=== PATIENT | female | born 1990 | race American Indian/Alaskan Native ===

== ENCOUNTER 2018-07-27 14:04 | Emergency (ER) | payer MEDICAID, OTHER ==
[2018-07-27 14:23] VITALS: RESP 18
[2018-07-27 14:37] VITALS: BMI 46.5
[2018-07-27] MEDS ORDERED: Sodium Chloride 0.9% 1,000 ML IV STA (14:37)
--- NOTE | 2018-07-27 15:29 | ED PDOC ---
Arrival/HPI - General Chief Complaint: Abdominal Pain Time Seen by Provider: 07/27/18 14:06 Historian: Patient - History of Present Illness Narrative History of Present Illness (Text): 07/27/18 15:26 27yo female with pmhx of Asthma bib EMS for complaint of epigastric pain associated with 3 episodes on nonbloody/bilious vomiting and diarrhea since this morning. States her finance who is also a patient in ED have similar symptoms. Denies fever, chills, chest pain, SOB, travel, melena, hematemesis, back pain, urinary symptoms, any other complaint,. Past Medical History - Provider Review Nursing Documentation Reviewed: Yes - Cardiac Hx Cardiac Disorders: No - Pulmonary Hx Respiratory Disorders: Yes Hx Asthma: Yes - Psychiatric Hx Substance Use: No Family/Social History - Physician Review Nursing Documentation Reviewed: Yes Family/Social History: Unknown Family HX Smoking Status: Light Smoker < 10 Cigarettes Daily Hx Alcohol Use: Yes Frequency of alcohol use: Socially Hx Substance Use: No Allergies/Home Meds Allergies/Adverse Reactions: Allergies No Known Allergies Allergy (Verified 07/27/18 14:30) Review of Systems - Physician Review All systems were reviewed & negative as marked: Yes - Review of Systems Constitutional: Normal Eyes: Normal ENT: Normal Respiratory: Normal Cardiovascular: Normal Gastrointestinal: Abdominal Pain, Diarrhea, Nausea, Vomiting. absent: Constipation, Hematochezia, Hematemesis Genitourinary Female: Normal Musculoskeletal: Normal Skin: Normal Neurological: Normal Endocrine: Normal Hemo/Lymphatic: Normal Psychiatric: Normal Physical Exam Vital Signs Reviewed: Yes Vital Signs Temp Pulse Resp BP Pulse Ox 07/27/18 14:22 98.5 F 99 H 18 108/45 L 99 Temperature: Afebrile Blood Pressure: Normal Pulse: Regular Respiratory Rate: Normal Appearance: Positive for: Well-Appearing, Non-Toxic, Comfortable Pain Distress: None Mental Status: Positive for: Alert and Oriented X 3 - Systems Exam Head: Present: Atraumatic, Normocephalic Pupils: Present: PERRL Extroacular Muscles: Present: EOMI Conjunctiva: Present: Normal Mouth: Present: Moist Mucous Membranes Neck: Present: Normal Range of Motion Respiratory/Chest: Present: Clear to Auscultation, Good Air Exchange. No: Respiratory Distress, Accessory Muscle Use Cardiovascular: Present: Regular Rate and Rhythm, Normal S1, S2. No: Murmurs Abdomen: Present: Tenderness (Epigastric), Normal Bowel Sounds, Guarding (Voluntary), Other (Soft). No: Distention, Peritoneal Signs, Rebound, McBurney's Point Tender, Rovsing's Sign Present Back: Present: Normal Inspection Upper Extremity: Present: Normal Inspection. No: Cyanosis, Edema Lower Extremity: Present: Normal Inspection. No: Edema Neurological: Present: GCS=15, CN II-XII Intact, Speech Normal Skin: Present: Warm, Dry, Normal Color. No: Rashes Psychiatric: Present: Alert, Oriented x 3, Normal Insight, Normal Concentration Medical Decision Making ED Course and Treatment: 07/27/18 19:16 PT present to ED for stated history. Labs 1L Ns, Zofran, Pepcid reassess On revaluation pt report improvement of her symptoms. Lab was reviewed and leuk ocytosis was noted. Pt symptom likely secondary to enteritis. Pt tolerated PO challenge in ED All result was DW the pt. she was advised to follow BRAT diet. Referred to her PMD. - Medication Orders Current Medication Orders: Sodium Chloride (Sodium Chloride 0.9%) 1,000 mls @ 1,000 mls/hr IV .Q1H STA Stop: 07/27/18 15:36 Discontinued Medications Famotidine (Pepcid) 20 mg IVP STAT STA Stop: 07/27/18 14:38 Ondansetron HCl (Zofran Inj) 4 mg IVP STAT STA Stop: 07/27/18 14:38 Disposition/Present on Arrival - Present on Arrival Any Indicators Present on Arrival: No History of DVT/PE: No History of Uncontrolled Diabetes: No Urinary Catheter: No History of Decub. Ulcer: No History Surgical Site Infection Following: None - Disposition Have Diagnosis and Disposition been Completed?: Yes Diagnosis: Abdominal pain, Vomiting and diarrhea Disposition: HOME/ ROUTINE Disposition Time: 17:50 Patient Plan: Discharge Condition: FAIR Discharge Instructions (ExitCare): Acute Abdomen (Belly Pain), Nausea and Vomiting, Adult (DC) Additional Instructions: Follow BRAT/BLAND diet Follow up with your Doctor Return to ED for any new or worsening symptoms Prescriptions: Famotidine [Pepcid] 40 mg PO DAILY #10 tab Ondansetron ODT [Zofran ODT] 4 mg PO Q6 #6 odt Referrals: Estella Smiley MD [Medical Doctor] - Follow up with primary Forms: [employer] (Yi)
[2018-07-27 16:18] LABS: BASO # 0.01 K/mm3 (0.0-2.0); BASO % 0.1 % (0.0-3.0); EOS # 0.1 (0.0-0.7); EOS % 0.6 % (1.5-5.0); GRAN # 11.35 (1.4-6.5); GRAN % 89.5 % (50.0-68.0); HEMOGLOBIN 12.4 g/dL (12.0-16.0); LYMPH % 7.5 % (22.0-35.0); MEAN CELL VOLUME 89.6 fl (80.0-105.0); MEAN CORPUSCULAR HEMOGLOBIN 29.2 pg (25.0-35.0); MEAN CORPUSCULAR HGB CONC 32.5 g/dl (31.0-37.0); MEAN PLATELET VOLUME 9.1 fl (7.0-11.0); MONO # 0.3 (0.1-0.6); MONO % 2.3 % (1.0-6.0); RBC 4.25 10^6/uL (3.5-6.1); RED CELL DISTRIBUTION WIDTH 14.6 % (11.5-14.5); WHITE BLOOD COUNT 12.7 10^3/uL (4.5-11.0)
[2018-07-27 16:21] LABS: ALBUMIN 4.1 g/dL (3.0-4.8); ALT/SGPT 24 U/L (7-56); AST/SGOT 26 U/L (14-36); BLOOD UREA NITROGEN 12 mg/dL (7-21); GFR NON-AFRICAN AMERICAN > 60; INR 1.15; LIPASE 26 U/L (23-300); PARTIAL THROMBOPLASTIN TIME 31.6 Seconds (25.1-36.5); PROTHROMBIN TIME 13.2 SECONDS (9.4-12.5)
[2018-07-27 18:44] VITALS: BP 129/74; PULSE 85; TEMP 98.4; O2SAT 97
== END 2018-07-27 18:31 | disposition home or self-care (01) ==
LOC: ED 14:04
DX: R11.10 Vomiting, unspecified (principal); R19.7 Diarrhea, unspecified; R10.13 Epigastric pain; F17.210 Nicotine dependence, cigarettes, uncomplicated
CPT/HCPCS: 80053; 83690; 83735; 85025; 85610; 85730; 96361; 96374; 96375; 99283; J2405; J7030